=== PATIENT | male | born 1960 | race Caucasian/White ===

== ENCOUNTER 2016-06-20 14:55 | Emergency (ER) | payer OTHER ==
[2016-06-20 15:10] VITALS: BP 144/90
--- NOTE | 2016-06-20 15:10 | UC ---
General HPI - HPI Summary HPI Summary: "My leg isn't working right." Awoke this AM and has been unable to walk without assistance. He has a complete list to the right, falls right over. He has a bit of soreness in right calf. No known injury. No redness or swelling. No vertigo, not dizzy or light-headed. No recent illness. No new meds. No arm weakness or numbness, no facial droop, no confusion or slurring of words. This never happened to him before. confirms that he can not walk at all today without assistance. He demonstrates for me his walk. He seems to have imbalance and lists to the right despite his best effort to stay upright. - History of Current Complaint Stated Complaint: CANT WALK STRAIGHT,LEANS TO RIGHT,SWEATING Time Seen by Provider: 06/20/16 15:07 Hx Obtained From: Patient, Family/Film Processor - Onset/Duration: Sudden Onset - awoke with it this AM, persists throughout day Timing: Constant Onset Severity: Severe Current Severity: Severe Pain Location at: right calf Associated Signs & Symptoms: Positive: Diaphoresis - off and on, Weakness - right leg; no weakness elsewhere. Negative: Back Pain, Confusion, Cough, Dizziness, Diarrhea, Fever, Headache, Hematemesis, Nausea, Trauma, Vomiting, Wheezing - Allergy/Home Medications Allergies/Adverse Reactions: Allergies Allergy/AdvReac Type Severity Reaction Status Date / Time Amoxicillin Allergy Severe respiratory Verified 06/20/16 15:11 /hives Sulfa Drugs Allergy Intermediate Hives Verified 06/20/16 15:11 Codeine AdvReac Intermediate Heartburn Verified 06/20/16 15:11 Home Medications: Home Medications Atenolol & Chlorthalidone [Atenolol/Chlorthalidone 50-25 mg-] 0.5 tab PO DAILY 06/20/16 [History Confirmed 06/20/16] LoraTADine TAB(NF) [Claritin TAB(NF)] 10 mg PO DAILY 06/20/16 [History Confirmed 06/20/16] Magnesium Oxide TAB* [MagOx 400 TAB*] 400 mg PO BID 06/20/16 [History Confirmed 06/20/16] Venlafaxine ER (NF) [Effexor ER (NF)] 150 mg PO DAILY 06/20/16 [History Confirmed 06/20/16] glipiZIDE TAB.XL* [Glucotrol XL*] 2.5 mg PO DAILY 06/20/16 [History Confirmed ] hydrOXYzine HCL TAB* [Atarax TAB*] 25 mg PO BEDTIME PRN 06/20/16 [History Confirmed 06/20/16] metFORMIN* [Glucophage*] 1,000 mg PO BID 06/20/16 [History Confirmed 06/20/16] PMH/Surg Hx/FS Hx/Imm Hx Endocrine History Of: Reports: Diabetes Cardiovascular History Of: Reports: Cardiac Disorders - follows with [facility]. chest discomfort, Hypertension Respiratory History Of: Reports: Asthma - Surgical History Surgical History: Yes Surgery Procedure, Year, and Place: umbilical HERNIA X 1 - Family History Known Family History: Positive: Hypertension - Social History Occupation: Employed Full-time Lives: With Family Alcohol Use: Occasionally Substance Use Type: None Smoking Status (MU): Heavy Every Day Tobacco Smoker Type: Cigarettes Amount Used/How Often: 2 packs per day Household Exposure Type: Cigarettes - Immunization History Most Recent Tetanus Shot: pt does not know Review of Systems Constitutional: Negative Skin: Negative Eyes: Negative ENT: Negative Respiratory: Negative Cardiovascular: Negative Gastrointestinal: Negative Genitourinary: Negative Motor: Negative Neurovascular: Negative Musculoskeletal: Myalgia - mild, right calf Neurological: Weakness - right leg, entire leg; no numbness or tingling Psychological: Negative All Other Systems Reviewed And Are Negative: Yes Physical Exam Triage Information Reviewed: Yes Appearance: Well-Appearing, No Pain Distress, Well-Nourished Vital Signs Reviewed: Yes Eye Exam: Normal ENT Exam: Normal Neck exam: Normal Neck: Positive: Supple Respiratory Exam: Normal Respiratory: Positive: Lungs clear Cardiovascular Exam: Normal Cardiovascular: Positive: RRR Abdominal Exam: Normal Musculoskeletal Exam: Other - mild right calf tenderness. No redness or swelling. No palpable cords Neurological Exam: Other - he lists to the right when he stands up and walks. Can't balance on his left leg, still falls over to right. Neurological: Positive: Alert, Muscle Tone Normal. Negative: Fatigued, Lethargic, Unresponsive, Abnormal Muscle Tone Psychological Exam: Normal Skin Exam: Normal Diagnostics - Laboratory Diagnostic Studies Completed/Ordered: EKG- NSR, no ischemia, unchanged from prior Course/Dx - Course Course Of Treatment: concern re: CVA. His balance difficulty does not seem consistent with a sore muscle, nor with vertigo. Transferred to [place] [facility]. He refused to go to [place] or [place] because of distance - Differential Dx - Multi-Symptom Provider Diagnoses: gait disturbance - Physician Notifications Discussed Patient Care With: Yumiko Bowling NP at [facility] Instructed by Provider To: Will See In ED Discharge - Discharge Plan Condition: Stable Disposition: TRANS HIGHER LVL OF CARE FAC
== END 2016-06-20 15:20 | disposition short-term general hospital (02) ==
LOC: UCCORT 14:55
DX: R26.9 Unspecified abnormalities of gait and mobility (principal); I49.3 Ventricular premature depolarization; I25.2 Old myocardial infarction; Z88.1 Allergy status to other antibiotic agents; Z88.5 Allergy status to narcotic agent; Z88.2 Allergy status to sulfonamides; E11.9 Type 2 diabetes mellitus without complications; Z79.84 Long term (current) use of oral hypoglycemic drugs; J45.909 Unspecified asthma, uncomplicated; F17.210 Nicotine dependence, cigarettes, uncomplicated
CPT/HCPCS: 93005; 99213; G0463

== ENCOUNTER 2016-06-20 19:21 | Inpatient (IN) | payer OTHER ==
--- NOTE | 2016-06-20 20:06 | ED ---
Diony Gallagher Claudia, scribed for Bernardo Martinez MD on 06/20/16 at 1946 . Neurological HPI - HPI Summary HPI Summary: 55 year old male presents to the ED with trouble ambulating since he woke up this morning. Pt was just at [facility] and received a work-up of blood work, CT-unremarkable per pt, and CXR- he signed out AMA for [place] before coming to [facility] since he did not want to be transferred to [place] for a Brain MRI per [facility] recommendations. He notes that when he tries to stand/ambulate he is unable and deviated to the right and falls over. Pt notes he was driving earlier today and even drove to [facility]. He also noted he was having pain in the back of his calf about 1.5 hours ago while at [place]. Pt notes he is asymptomatic while sitting, it is only when he begins to stand that he begins to experience symptoms. Pt denied fever and is no longer having the calf pain. - History of Current Complaint Chief Complaint: EDNeurologicalDeficit Stated Complaint: HEADACHE,DIFFICULTY AMBULATING Time Seen by Provider: 06/20/16 19:30 Hx Obtained From: Patient Onset/Duration: Sudden Onset - this am, Still Present Timing: Constant Neurological Deficit Location: Generalized - unable to ambulate without deviating/falling over Pain Intensity: 6 Pain Scale Used: 0-10 Numeric Character: Other: - unable to ambulate without deviating to the right/ falling over Aggravating: Nothing - standing Alleviating: Position Change - sitting is asymptomatic Associated Signs and Symptoms: Negative: Loss of Consciousness - Allergy/Home Medications Allergies/Adverse Reactions: Allergies Allergy/AdvReac Type Severity Reaction Status Date / Time Amoxicillin Allergy Severe respiratory Verified 06/20/16 15:11 /hives Sulfa Drugs Allergy Intermediate Hives Verified 06/20/16 15:11 Codeine AdvReac Intermediate Heartburn Verified 06/20/16 15:11 PMH/Surg Hx/FS Hx/Imm Hx Previously Healthy: Yes Endocrine/Hematology History: Reports: Hx Diabetes Cardiovascular History: Reports: Hx Hypertension Respiratory History: Reports: Hx Asthma - Surgical History Surgery Procedure, Year, and Place: umbilical HERNIA X 1 Infectious Disease History: No Infectious Disease History: Denies: Traveled Outside the [place] in Last 30 Days - Family History Known Family History: Positive: Hypertension - Social History Occupation: Unemployed Lives: With Family Alcohol Use: Occasionally Substance Use Type: Reports: None Hx Tobacco Use: Yes Smoking Status (MU): Heavy Every Day Tobacco Smoker Type: Cigarettes Amount Used/How Often: 2 packs per day Review of Systems Constitutional: Negative Negative: Fever, Chills Eyes: Negative ENT: Negative Cardiovascular: Negative Respiratory: Negative Gastrointestinal: Negative Genitourinary: Negative Musculoskeletal: Negative Skin: Negative Neurological: Other - unable to ambulate without deviating to the right ot falling over Psychological: Normal All Other Systems Reviewed And Are Negative: Yes Physical Exam Triage Information Reviewed: Yes Vital Signs On Initial Exam: Initial Vitals Temp Pulse Resp BP Pulse Ox 97.7 F 97 16 129/91 99 06/20/16 19:24 06/20/16 19:24 06/20/16 19:24 06/20/16 19:24 06/20/16 19:24 Vital Signs Reviewed: Yes Appearance: Positive: Well-Appearing, No Pain Distress Skin: Positive: Warm Head/Face: Positive: Normal Head/Face Inspection Eyes: Positive: EOMI, NIKKI ENT: Positive: Hearing grossly normal Neck: Positive: Supple Respiratory/Lung Sounds: Positive: Clear to Auscultation, Breath Sounds Present Cardiovascular: Positive: Normal. Negative: Murmur Abdomen Description: Positive: Nontender, Soft Bowel Sounds: Positive: Present Musculoskeletal: Positive: Strength/ROM Intact Neurological: Positive: CN Intact II-III, Abnormal Gait - stumbling to right Psychiatric: Positive: Affect/Mood Appropriate Diagnostics - Vital Signs Vital Signs Temp Pulse Resp BP Pulse Ox 06/20/16 19:24 97.7 F 97 16 129/91 99 - Laboratory Result Diagrams: 06/20/16 20:00 06/20/16 20:00 Lab Statement: Any lab studies that have been ordered have been reviewed, and results considered in the medical decision making process. - Radiology CHEST XRAY Xray Interpretation: No Acute Changes - STIGMATA OF COPD. MILD CENTRAL AIRWAY WALL THICKENING SUGGEST AIRWAY INFLMAATION. NO ALVEOLAR CONSOLIDATION TO FAVOR PNEUMONIA. Radiology Interpretation Completed By: Radiologist - CT BRAIN CT CT Interpretation: No Acute Changes - NEGATIVE UNENHANCED HEAD CT CT Interpretation Completed By: Radiologist - EKG 19:29 Cardiac Rate: NL EKG Rhythm: Sinus Rhythm - 83 beats/min EKG Interpretation: poor R retention left axis NIH Scale - NIH Scale Level of Consciousness: Alert/Keenly Responsive Ask Patient the Month and His/Her Age: Both Correct Ask Pt to Open/Close Eyes and Wing Scorer/Release Non-Paretic Hand: Both Correctly Best Gaze (Only Horizontal Eye Movement): Normal Visual Field Testing: No Visual Loss Facial Paresis-Pt to Smile & Close Eyes or Grimace Symmetry: Normal/Symmetrical Motor Function - Right Arm: No Drift-Holds 10 Seconds Motor Function - Left Arm: No Drift-Holds 10 Seconds Motor Function - Right Leg: No Drift-Holds 10 Seconds Motor Function - Left Leg: No Drift-Holds 10 Seconds Limb Ataxia-Must be out of Proportion to Weakness Present: Absent Sensory (Use Pinprick to Test Arms/Legs/Trunk/Face): Normal Best Language (Describe Picture, Name Items): No Aphasia Dysarthria (Read Several Words): Normal Extinction and Inattention: No Abnormality Total Score: 0 Re-Evaluation - Re-Evaluation 1 Re-Evaluation Time: 21:25 Comment: CT Brain, CXR are discussed with the patient Course/Dx - Course Assessment/Plan: Pt presents with difficulty ambulating without deviating to the right and or falling over, sudden onset this morning. CT Brain was unremarkable. Consult [facility] Dr. Calderón recommends aspirin and admission to [facility]. Patient is agreeable with the plan. - Diagnoses Provider Diagnoses: CVA (cerebral vascular accident) - Physician Notifications Discussed Care of Patient With: Disussed patient with Dr. Culver whom recommends aspirin and admission to [facility]. Dr. Boswell is aware of the patient and accepts admission to [facility]. Time Discussed With Above Provider: 21:42 Discharge - Discharge Plan Condition: Fair Disposition: ADMITTED TO [facility] documentation as recorded by the Diony ferraro Claudia accurately reflects the service I personally performed and the decisions made by me, Bernardo Martinez MD.
[2016-06-20 20:20] LABS: Hematocrit 47 % (42-52); Hemoglobin 15.8 g/dl (14.0-18.0); Mean Corpuscular HGB Conc 33 g/dl (31-36); Mean Corpuscular Hemoglobin 29 pg (27-31); Mean Corpuscular Volume 87 fL (80-94); Mean Platelet Volume 9 um3 (7.4-10.4); Red Blood Count 5.42 10^6/ul (4.0-5.4); Red Cell Distribution Width 14 % (10.5-15)
[2016-06-20 20:39] LABS: Albumin 4.3 g/dL (3.2-5.2); BUN/Creatinine Ratio 13.8 (8-20); Calcium 9.6 mg/dL (8.6-10.3); EGFR African American 79.2 (>60); EGFR Non-African American 61.6 (>60); Globulin 2.6 g/dL (2-4); Magnesium 1.6 mg/dL (1.9-2.7); Potassium 4.1 mmol/L (3.5-5.0); Total Bilirubin 0.3 mg/dL (0.2-1.0); Total Protein 6.9 g/dL (6.4-8.9)
--- NOTE | 2016-06-20 20:59 | RAD ---
INDICATION: Generalized body weakness. Tobacco use. COMPARISON: June 14, 2014 TECHNIQUE: Dual energy PA and routine lateral views of the chest were obtained. REPORT: Mildly elevated lung volumes with prominent AP thoracic diameter. Diffuse mild prominence of the interstitial markings. Mild central airway wall thickening. No alveolar consolidation, focal pulmonary lesion, pleural effusion, or pneumothorax. The heart, pulmonary vasculature, and mediastinal contours are unremarkable. IMPRESSION: Stigmata of chronic obstructive pulmonary disease. Mild central airway wall thickening suggest airways inflammation. No alveolar consolidation to favor pneumonia.
--- NOTE | 2016-06-20 21:02 | RAD ---
Indication: Off-balance, leaning when ambulating. Headache. Slight LEFT arm drift and LEFT landscape manager weakness. Headache. Comparison: None. Technique: Noncontrast CT vertex of skull through foramen magnum. Report: The sulci, ventricles, and basal cisterns are normal for age. Johnson matter white matter differentiation is preserved without evidence for edema. No intra or extra axial hemorrhage, mass, or fluid collection detected. Unremarkable orbital contents. Unremarkable calvarium and skull base. Unremarkable scalp. The visualized paranasal sinuses and mastoid air spaces are clear. IMPRESSION: Negative unenhanced head CT.
[2016-06-20] MEDS ORDERED: Aspirin TAB* 325 MG PO ONE (21:40)
[2016-06-20] MEDS ORDERED: Ondansetron INJ* 2 MG/ML VIAL IV PRN (22:44)
[2016-06-20] MEDS ORDERED: Senna TAB PO PRN (22:44)
[2016-06-20] MEDS ORDERED: Acetaminophen TAB* 325 MG PO PRN (22:44)
[2016-06-20] MEDS ORDERED: Al Hydrox/Mg Hydrox/Simet LIQ* 30 ML UDC PO PRN (22:44)
[2016-06-20] MEDS ORDERED: Docusate CAP* 100 MG PO PRN (22:44)
[2016-06-20] MEDS ORDERED: Magnesium Sulfate 2 GM IV* 2 GM/50 ML BAG IVPB ONE (22:45)
[2016-06-20] MEDS ORDERED: Atorvastatin* 40 MG TAB PO ONE (22:50)
[2016-06-20] MEDS ORDERED: Nicotine Inhaler* 10 MG AMP INH PRN (22:50)
[2016-06-20] MEDS ORDERED: Dextrose 50% Syringe 50 ML* 25 GM/50 ML SYRINGE IV PUSH PRN (22:50)
[2016-06-20] MEDS ORDERED: Mouth Piece, Nicotine* 1 EACH CARTRIDGE INH PRN (22:50)
[2016-06-20] MEDS ORDERED: hydrOXYzine HCL TAB* 25 MG PO PRN (22:50)
[2016-06-20] MEDS ORDERED: Albuterol HFA INHALER* 8 gm MDI INH PRN (22:54)
[2016-06-21] MEDS: Omeprazole CAP* 20 MG PO SCH ×2 (00:18→10:09)
[2016-06-21] MEDS: Heparin VIAL(*) 5000 UNITS/ML VIAL (FIVE THOUSAND) SUBCUT SCH ×2 (05:43→13:30)
[2016-06-21 06:34] LABS: BUN/Creatinine Ratio 13.5 (8-20); Calcium 9.3 mg/dL (8.6-10.3); EGFR African American 72.3 (>60); EGFR Non-African American 56.2 (>60); HDL Cholesterol 32.9 mg/dL; Magnesium 2.1 mg/dL (1.9-2.7)
[2016-06-21] MEDS ORDERED: Aspirin TAB* 325 MG PO SCH (09:00)
[2016-06-21] MEDS ORDERED: Venlafaxine EXT RELEASE CAP* 75 MG PO SCH (09:00)
[2016-06-21 09:02] LABS: Urine Bilirubin Negative (Negative); Urine Glucose Negative (Negative); Urine Nitrite Negative (Negative)
--- NOTE | 2016-06-21 09:20 | HP ---
HISTORY AND PHYSICAL: DATE OF ADMISSION: 06/20/16 TIME OF EVALUATION: 2200. PRIMARY CARE PHYSICIAN: Dwayne Feliz MD. CHIEF COMPLAINT: Difficulty ambulating. HISTORY OF PRESENT ILLNESS: This is a 55-year-old male with a past medical history of hypertension, diabetes, hyperlipidemia and a heavy smoker, who presented to the emergency room with difficulty ambulating. The patient states he woke up this morning and he kept falling over, leaning towards the right with difficulty ambulating. He went to [facility] where they sent him to [facility] where they recommended he go to [facility] for a neurology evaluation. The patient did not want to travel that far and left A. He started to get nervous and came to emergency room here at [facility] for further evaluation. He states he has fallen several times with no loss of consciousness. No injury to his head. He does have left elbow tendinitis, but this is not new. He denies any focal weakness. No numbness or tingling. He has a mild diffuse headache. No blurry vision. No confusion. No difficulties with speech. He denies any chest pain or shortness of breath. No new recent URIs, fevers or chills. No nausea, vomiting or diarrhea. Otherwise, review of systems is negative. In the emergency room, the patient had labs, imaging, was given 325 mg of aspirin and was referred to the hospitalist service for further evaluation. Dr. Calderón was consulted in the emergency room and he recommended admission for stroke workup. PAST MEDICAL HISTORY: 1. Hypertension. 2. Diabetes. 3. Depression. 4. Hyperlipidemia. 5. GERD. MEDICATIONS: 1. Lisinopril 40 mg p.o. daily. 2. Aspirin 81 mg daily. 3. Simvastatin 40 mg daily. 4. Omeprazole 40 mg p.o. b.i.d. 5. Atenolol and chlorthalidone 50-25 half tablet p.o. daily 6. Claritin 10 mg daily. 7. Magnesium oxide 400 mg p.o. b.i.d. 8. Effexor ER 150 mg p.o. daily. 9. Glipizide 2.5 mg p.o. daily. 10. Atarax 25 mg as needed for anxiety. 11. Metformin 1000 mg p.o. b.i.d. ALLERGIES: AMOXICILLIN, SULFA, CODEINE. SOCIAL HISTORY: The patient lives at home with his , Marlene, who is his healthcare proxy. He admits to smoking 2 packs per day for up to 30 years. He used to be a heavy drinker, but has not had a significant amount of alcohol in many years. No illicit drug use. He is unemployed. CODE STATUS: Full code. REVIEW OF SYSTEMS: As mentioned in the HPI. FAMILY HISTORY: No history of stroke. His mother does have hypertension and diabetes. PHYSICAL EXAMINATION GENERAL: In no acute distress, resting comfortably with his at the bedside. VITAL SIGNS: Temp is 97.7, pulse rate is 97, respiratory rate is 16, oxygen saturation 97% on room air, blood pressure 121/91. HEENT: Pupils are equal and reactive, anicteric. Head normocephalic. Eyes, extraocular muscles intact. NECK: Supple. No lymphadenopathy. No nuchal rigidity. RESPIRATORY: Diminished breath sounds. Fine scattered bilateral expiratory wheeze. CARDIAC: Regular rate and rhythm. Soft systolic murmur heard throughout. ABDOMEN: Soft, nontender, and nondistended. EXTREMITIES: No clubbing, cyanosis, or edema. +1 DPs. NEUROLOGIC: Alert and oriented x3. Cranial nerves II through XII intact. Negative pronator drift. Upper and lower muscle strength normal. Heel to ramírez test normal. Do not ambulate him as the ER did ambulate him and they noted that he had difficulty standing and ambulating and leaning towards the right. LABORATORY DATA: White count 13, hemoglobin 15.8, hematocrit 47, platelet count 296. Sodium 131, potassium 4.1, chloride 105, bicarb 26, BUN 17, creatinine 1.23, glucose 157, lactic acid 1.3. Magnesium 1.6. RADIOGRAPHIC DATA: EKG shows normal sinus rhythm. Chest x-ray: Stigmata of COPD, mild central aortic wall thickening suggests inflammation. No alveolar consolidation to favor pneumonia. Head CT negative, unenhanced head CT. ASSESSMENT AND PLAN: This is a 55-year-old male with a past medical history of hypertension, diabetes, hyperlipidemia and heavy smoking who presents to the emergency room after leaving AMA from [facility] with ataxia. 1. Ataxia. Assessment: The patient with difficulty ambulating, leaning to the right is most concerning for a cerebellar infarct. Head CT was unremarkable. However, he has significant risk factors for stroke. Neurology was consulted in the emergency room. Plan is to admit him to telemetry. We will start him on a full dose aspirin. The patient is to get an MRI in the morning. PT consult, follow up with Neurology. We will get a lipid panel and check a hemoglobin A1c. We will continue him on the statin. We will change him to atorvastatin as we have this on formulary to 40 mg, give him a dose now and also obtain an echocardiogram. 2. Acute kidney injury. The patient with a slight bump in his creatinine, this is compared to 2010. Assessment and plan: We will hold his lisinopril, repeat his labs and renally dose his medications. CHRONIC MEDICAL PROBLEMS: 1. Hypertension. In the setting of a stroke, we will allow for permissive hypertension and hold his antihypertensives. 2. Diabetes. We will place him on lispro sliding scale, hold his oral agents, check a hemoglobin A1c. 3. Hyperlipidemia. As mentioned, we will switch him from simvastatin to atorvastatin as we have this on formulary. 4. Gastroesophageal reflux disease. We will continue his omeprazole 20 mg p.o. b.i.d. 5. Depression. Continue his Effexor ER and his Atarax as needed. 6. FEN. We will place him on a diabetic diet. 7. DVT prophylaxis. He scores moderate risk. We will place him on heparin subcu t.i.d. 8. Code status. Full code. PATIENT TIME: Greater than 45 minutes spent doing the history and physical, more than half the time was spent in direct patient contact. CC: [place] [id number]/CPS #: [id number] MASOUD
[2016-06-21 09:28] LABS: Benzodiazepine Urine Screen None Detected (None Detect)
[2016-06-21] MEDS: Insulin LISPRO* 1 UNITS UNIT SUBCUT SCH ×3 (10:10→17:45)
--- NOTE | 2016-06-21 11:31 | RAD ---
HISTORY: Rule out stroke, gait and balance COMPARISONS: Head CT dated June 20, 2016 TECHNIQUE: The following sequences were obtained of the head: Sagittal T1-weighted images, axial T2-weighted images, axial FLAIR images, axial susceptibility weighted images, axial T1-weighted images. Additionally, axial diffusion-weighted images were obtained with calculated apparent diffusion coefficients. FINDINGS: HEMORRHAGE/INFARCT: There is no hemorrhage or acute infarct. MASSES/SHIFT: There is no mass or shift. EXTRA-AXIAL SPACES/MENINGES: There are no extra-axial fluid collections. SULCI AND VENTRICLES: The sulci and ventricles are normal in size and position for the patient's stated age. CEREBRUM: There are few, scattered small foci of elevated T2/FLAIR signal within the periventricular and subcortical white matter. BRAINSTEM: There are no focal parenchymal abnormalities. CEREBELLUM: There are no focal parenchymal abnormalities. The cerebellar tonsils are normal in size and position. SELLA: The sella is normal. PINEAL: The pineal region is clear. CP ANGLE/TEMPORAL BONES: The labyrinthine structures are grossly normal. VESSELS: Normal flow-voids are noted within the visualized vertebral vasculature. DIFFUSION ABNORMALITIES: There are no diffusion abnormalities. A small focus of increased diffusion signal on axial image 7 has no corresponding abnormality on the ADC map and is felt to be artifactual. There is no corresponding T2/FLAIR signal abnormality PARANASAL SINUSES/MASTOIDS: The paranasal sinuses are clear. There are small bilateral mastoid effusions ORBITS: The orbits are unremarkable. BONES AND SOFT TISSUE: No bone or soft tissue abnormalities are noted. OTHER: None IMPRESSION: 1. THERE ARE MULTIPLE FOCI OF ELEVATED T2/FLAIR SIGNAL WITHIN THE PERIVENTRICULAR AND SUBCORTICAL WHITE MATTER. WHILE THESE FINDINGS ARE NONSPECIFIC, THEY CAN BE SEEN IN ASSOCIATION WITH MIGRAINE HEADACHE, THE SEQUELA OF PREVIOUS INFECTION OR INFLAMMATION, AND CHRONIC SMALL VESSEL ISCHEMIA. DEMYELINATING DISEASE IS ALSO WITHIN THE DIFFERENTIAL, BUT IS CONSIDERED LESS LIKELY IN THE ABSENCE OF THE APPROPRIATE CLINICAL PRESENTATION. 2. NO RESTRICTED DIFFUSION TO SUGGEST ACUTE INFARCT. 3. SMALL BILATERAL MASTOID EFFUSIONS
--- NOTE | 2016-06-21 15:01 | ECHO ---
Patient: SPENCER MADISON [facility] Rec#: [id number] : 1960 Date: 06/21/2016 Age: 55y Height: 180.34 cm / 71.0 in Weight: 129.27 kg / 284.9 lbs Sex: M BSA: 2.45 Room#: 438 Admit Date#: 06/21/2016 Type: Inpatient Referring: Myrna Boswell Reading: Jayjay Avila MD [employer] Manager: Mariela Odom RDCS CC: Dwayne Feliz MD Transthoracic Echocardiogram Indication: CVA BP: 123/64 HR: 66 Rhythm: NSR Findings History: COPD,difficulty walkinf,DM,HTN,asthma,active smoker. Technical Comments: The study is technically limited due to patient body habitus. Completed at 1410. Left Ventricle: The left ventricular chamber size is normal. Global left ventricular wall motion and contractility are within normal limits. Left ventricular systolic function is at the lower limits of normal. The estimated ejection fraction is 50-55%. Visually estimated LVEF is 50 %. Abnormal left ventricular diastolic filling is observed, consistent with impaired relaxation. Left Atrium: The left atrium is slightly dilated. Right Ventricle: The right ventricular cavity size is normal. The right ventricular global systolic function is normal. Right Atrium: The right atrial cavity size is normal.With agitated saline there is no evidence of right to left shunting. Aortic Valve: The aortic valve structure is not well visualized. There is no evidence of aortic regurgitation. There is no evidence of aortic stenosis. Mitral Valve: The mitral valve leaflets are mildly thickened. There is a trace of mitral regurgitation. There is no evidence of mitral stenosis. Tricuspid Valve: The tricuspid valve leaflets are normal. There is a physiologic tricuspid regurgitation. There is evidence that pulmonary hypertension may be underestimated. Pulmonic Valve: The pulmonic valve appears normal. There is no evidence of pulmonic regurgitation. There is no pulmonic stenosis. Pericardium: A pericardial fat pad is visualized. Aorta: There is no dilatation of the ascending aorta. There is no dilatation of the aortic arch. There is no dilation of the aortic root. Pulmonary Artery: The main pulmonary artery appears normal. Venous: The venous system is not well visualized. Contrast: Normal saline was used as contrast for the bubble study. Intravenous contrast was used to help determine presence of intracardiac shunting. Conclusions The study is technically limited due to patient body habitus and significant lung tissue interference. The left ventricular chamber size is normal. Left ventricular systolic function is at the lower limits of normal. The estimated ejection fraction is 50-55%. Visually estimated LVEF is 50 %. Abnormal left ventricular diastolic filling is observed, consistent with impaired relaxation. With agitated saline there is no evidence of right to left shunting. No significant valvular disease: There is a trace of mitral regurgitation. No significant change compared to report of study from07/23/2010 Measurements Name Value Normal Range RVIDd (AP) 2D 2.9 cm (0.9 - 2.6) RVDdMajor (2D) 2.5 cm (2.2 - 4.4) RAd ISD 4CH 4.3 cm (3.4 - 4.9) RA (A4C)W 4.2 cm (2.9 - 4.6) IVSd (2D) 0.8 cm (0.6 - 1) LVPWd (2D) 1.3 cm (0.6 - 1) LVIDd (2D) 5.3 cm (3.6 - 5.4) LVIDs (2D) 3.7 cm - LV FS (2D) 29 % (25 - 45) Aortic Annulus 2.3 cm (1.4 - 2.6) Ao root diameter (2D) 3.3 cm (2.1 - 3.5) Ascending Ao 3.4 cm (2.1 - 3.4) Aortic arch 2.5 cm (1.8 - 3.4) Descending Ao 0.7 cm - LA dimension (AP) 2D 4 cm (2.3 - 3.8) LAd ISD 4CH 5.7 cm (2.9 - 5.3) LA ISD 4CH W 3.1 cm (2.5 - 4.5) Name Value Normal Range LA ESV SP 4CH (A/L) 50 ml - LA ESV SP 2CH (A/L) 44 ml - LA ESV BP (A/L) 48 ml - LA ESV BP (A/L) index 19.48 ml/m2 - LA ESV SP 4CH (MOD) 46 ml - LA ESV SP 2CH (MOD) 43 ml - Name Value Normal Range MV E-wave Vmax 0.6 m/sec - MV deceleration time 174 msec - MV A-wave Vmax 0.8 m/sec - MV E:A ratio 0.76 ratio - LV septal e' Vmax 0.08 m/sec - LV lateral e' Vmax 0.09 m/sec - LV E:e' septal ratio 7.5 ratio - LV E:e' lateral ratio 6.67 ratio - Name Value Normal Range AV Vmax 1.5 m/sec - AV VTI 26.1 cm - AV peak gradient 8.86 mmHg - AV mean gradient 4.45 mmHg - LVOT Vmax 1.1 m/sec - LVOT VTI 21.2 cm - LVOT peak gradient 4.93 mmHg - LVOT mean gradient 2.47 mmHg - Name Value Normal Range PV Vmax 1.1 m/sec - PV peak gradient 4.61 mmHg -
[2016-06-21] MEDS ORDERED: Iodixanol* (CONTRAST) 320 MG/ML 100 ML SDV IV ONE (16:45)
--- NOTE | 2016-06-21 17:08 | PN ---
Subjective Date of Service: 06/21/16 Interval History: Patient seen and examined at bedside. Pt states that his gait is improving, but he still goes to the right when he ambulates. Denies fever, chills, shortness of breath, chest discomfort, lightheadedness or dizziness, N/V/D. Denies urinary problems. Tele: Sinus rhythm, rate 70-80's. Family History: Unchanged from Admission Social History: Unchanged from Admission Past Medical History: Unchanged from Admission Objective Active Medications: Acetaminophen (Tylenol Tab*) 650 mg PO Q4H PRN Reason: FEVER/PAIN Al Hydrox/Mg Hydrox/Simethicone (Maalox Plus*) 30 ml PO Q6H PRN Reason: INDIGESTION Albuterol (Ventolin Hfa Inhaler*) 2 puff INH Q2H PRN Reason: SOB/WHEEZING Aspirin (Aspirin Tab*) 325 mg PO DAILY ISABEL Atorvastatin Calcium (Lipitor*) 40 mg PO 2100 [facility] Device (Nicotine Mouth Piece*) 1 each INH .USE WITH NICOTROL PRN Reason: CRAVING Dextrose (D50w Syringe 50 Ml*) 12.5 gm IV PUSH .FOR FS < 60 - SS PRN Reason: FS < 60 Docusate Sodium (Colace Cap*) 100 mg PO BID PRN Reason: CONSTIPATION Heparin Sodium (Porcine) (Heparin Vial(*)) 5,000 units SUBCUT Q8HR [facility] Hydroxyzine HCl (Atarax Tab*) 25 mg PO Q6H PRN Reason: ANXIETY Insulin Human Lispro (Humalog*) 0 units SUBCUT AC [facility] Nicotine (Nicotine Inhaler*) 10 mg INH Q2H PRN Reason: CRAVING Omeprazole (Prilosec Cap*) 20 mg PO BID [facility] Ondansetron HCl (Zofran Inj*) 4 mg IV Q4H PRN Reason: NAUSEA/VOMITING Senna (Senokot Tab*) 1 tab PO BID PRN Reason: CONSTIPATION Venlafaxine HCl (Effexor Xr Cap*) 150 mg PO DAILY [facility] Vital Signs 06/21/16 06/21/16 06/21/16 01:32 01:45 08:00 Temperature 98.1 F Pulse Rate 81 Respiratory 20 20 18 Rate Blood Pressure 123/64 (mmHg) O2 Sat by Pulse 96 Oximetry 06/21/16 06/21/16 06/21/16 08:12 09:50 11:27 Temperature 98.4 F 99.1 F Pulse Rate 71 75 78 Respiratory 16 16 16 Rate Blood Pressure 111/79 135/92 (mmHg) O2 Sat by Pulse 99 98 Oximetry Oxygen Devices in Use Now: None Appearance: NAD, sitting up in bed. Eyes: No Scleral Icterus, PERRLA Ears/Nose/Mouth/Throat: NL Teeth, Lips, Gums, Mucous Membranes Moist Neck: NL Appearance and Movements; NL JVP, Trachea Midline Respiratory: Symmetrical Chest Expansion and Respiratory Effort, Clear to Auscultation Cardiovascular: NL Sounds; No Murmurs; No JVD, RRR Abdominal: NL Sounds; No Tenderness; No Distention Extremities: No Edema Skin: No Rash or Ulcers Neurological: Alert and Oriented x 3, NL Muscle Strength and Tone Lines/Tubes/Other Access: Clean, Dry and Intact Peripheral IV - site benign. Nutrition: Taking PO's Result Diagrams: 06/20/16 20:00 06/21/16 05:45 Assess/Plan/Problems-Billing Assessment: Mr. Denise is a 55 yo male with PMH significant for HTN, DM, HLD, and heavy smoking who presented to the emergency room for ataxia. - Patient Problems (1) Ataxia Code(s): R27.0 - ATAXIA, UNSPECIFIED SNOMED Code(s): 43816585 Comment: Improving. Head CT unremarkable. MRI . Neurology input appreciated. Will check CTA. Suspect possible right sided cerebellar infact vs TIA. Will start Plavix or continue ASA, but increase to 325 if Pt not willing to take Plavix. (2) HATTIE (acute kidney injury) Code(s): N17.9 - ACUTE KIDNEY FAILURE, UNSPECIFIED SNOMED Code(s): 58482049 Comment: Creatinine continues to be elevated. Will continue to hold lisinopril. Renally dose medications. (3) HTN (hypertension) Code(s): I10 - ESSENTIAL (PRIMARY) HYPERTENSION SNOMED Code(s): 18294399 Comment: Controlled. Continue to hold Lisinopril in setting of HATTIE. (4) Diabetes Code(s): E11.9 - TYPE 2 DIABETES MELLITUS WITHOUT COMPLICATIONS SNOMED Code(s) : 00717861 Comment: HgA1C 8.0. Glucose 160's. Continue lispro, and resume oral agents at discharge. (5) HLD (hyperlipidemia) Code(s): E78.5 - HYPERLIPIDEMIA, UNSPECIFIED SNOMED Code(s): 70339824 Comment: Continue statin (6) GERD (gastroesophageal reflux disease) Code(s): K21.9 - GASTRO-ESOPHAGEAL REFLUX DISEASE WITHOUT ESOPHAGITIS SNOMED Code(s): 594778019 Comment: Continue omeprazole (7) Depression Code(s): F32.9 - MAJOR DEPRESSIVE DISORDER, SINGLE EPISODE, UNSPECIFIED SNOMED Code(s): 20788848 Comment: Continue Effexor and atarax PRN. (8) DVT prophylaxis Code(s): POT7298 - SNOMED Code(s): 840870604 Comment: Continue SQ Heparin (9) Full code status Code(s): Z78.9 - OTHER SPECIFIED HEALTH STATUS SNOMED Code(s): 783071620 Status and Disposition: Inpatient. Discharge to home when medically stable. Possibly later today.
--- NOTE | 2016-06-21 17:29 | RAD ---
INDICATION: Possible CVA. COMPARISON: June 21, 2016 MRI. TECHNIQUE: Multidetector CT images were obtained from the aortic arch to the vertex of the head with 80 mL Visipaque 320 IV contrast. Arterial phase of enhancement. Multiplanar reformation including maximum intensity projection. 3-D arterial volume rendering. Stenosis estimations based on denominator of distal arterial diameter. NECK ANGIOGRAM REPORT: Noncalcified plaque at the ostia of the branch vessels at the aortic arch without suggestion of hemodynamic significant stenosis. Mild calcific and noncalcific plaque at the RIGHT carotid bulb and proximal internal carotid artery with approximate 30% short segment stenosis resulting at the proximal segment. Mild calcific and noncalcific plaque at the LEFT carotid bifurcation and proximal internal carotid artery with approximate 30% short segment stenosis at the proximal segment. LEFT dominant vertebral artery is patent. Diminutive RIGHT vertebral artery appears to largely terminate in the posterior inferior cerebellar artery with equivocal minimal contribution to the basilar artery. NECK ANGIOGRAM IMPRESSION: Atherosclerotic disease with approximate 30% bilateral internal carotid artery stenosis. HEAD ANGIOGRAM REPORT: Mild calcific plaque at the carotid siphons. Minimal calcific plaque at the supraclinoid segment of the LEFT internal carotid artery without significant stenosis resulting. Unremarkable M1 and M2 segments of the middle cerebral arteries as well as the A1 and A2 segments of the anterior cerebral arteries. No definitive anterior communicating artery visualized. Unremarkable cerebellar artery origins. The basilar artery is diminutive in size and terminates in the patent LEFT posterior cerebral artery with probable additional small contribution from a hypoplastic LEFT posterior communicating artery. The RIGHT posterior cervical arteries patent and supplied primarily by a dominant RIGHT posterior communicating artery with normal variant hypoplastic P1 segment. No intracranial aneurysm or vascular malformation evident. HEAD ANGIOGRAM IMPRESSION: No significant intracranial arterial stenosis or occlusion. Normal arterial anatomy variation as described. CPT II: CPT II Codes: 3100F
[2016-06-21 18:24] VITALS: BP 113/76
[2016-06-21] MEDS ORDERED: Atorvastatin* 40 MG TAB PO SCH (21:00)
--- NOTE | 2016-06-21 22:17 | CONS ---
CONSULTATION REPORT: DATE OF CONSULT: 06/21/16 PATIENT OF: Nelida Rayo NP. HISTORY OF PRESENT ILLNESS: This is a 55-year-old man I am asked to evaluate for an acute onset of gait disturbance. He woke up yesterday morning with imbalance and leaning to the right and he fell a couple of times. He was initially seen at urgent care and then to [facility] and he left AMA and came to [facility] later that day. He has fallen. He has had no numbness or tingling and no clear weakness with that, but he had a feeling of imbalance and when his eyes were closed, he could not stand. He had just a mild headache, no blurred vision, no confusion. No nausea, no difficulty with speech. No chest pain. He has a history of hypertension, diabetes, hyperlipidemia, depression, GERD, and he smokes significantly 2 packs a day for 30 years and he was a former heavy drinker but not now. He is unemployed. MEDICATIONS AT HOME: Include: 1. Lisinopril 40 mg daily. 2. Aspirin 81 mg daily. 3. Simvastatin 40 mg daily. 4. Omeprazole 40 mg twice a day. 5. Atenolol and chlorthalidone 50/25 half tablet daily. 6. Claritin 10 mg daily. 7. Mag oxide 400 b.i.d. 8. Effexor 150 daily. 9. Glipizide 2.5 daily. 10. Atarax 25 mg p.r.n. 11. Metformin 1000 mg daily. ALLERGIES: To AMOXICILLIN, SULFA and CODEINE. FAMILY HISTORY: There is no family history for stroke. Mother has hypertension , diabetes. SOCIAL HISTORY: Lives with his . REVIEW OF SYSTEMS: As above. PHYSICAL EXAM: On exam, temperature 99.1, pulse 78, respirations 16, blood pressure 135/92. He is alert and oriented with normal speech and comprehension. Cranial nerves II through XII were intact. Fundi were benign. Motor exam revealed normal tone and strength including in that right leg, is minimally unsteady standing, walking he tends to veer to the right slightly but did not appear to fall and he was out wandering the singh later without apparent difficulty. Sensation intact to light touch. Reflexes were 2 and equal with trace to 1 ankle jerks. Toes were downgoing. Chest: Clear. Cardiovascular: Regular rate and rhythm. Abdomen: Soft with positive bowel sounds. DIAGNOSTIC STUDIES/LAB DATA: His MRI scan was reviewed and showed no acute stroke but did show a few nonspecific white matter lesions. He had a cardiac echo that showed a negative bubble study and no source of clot. Labs include white count of 13, normal CBC otherwise. CMP had a creatinine of 1.23 initially, sodium of 131. Hemoglobin A1c of 8.0, calcium 1.6, LDL of 96. UA negative. Toxicology negative. ASSESSMENT AND PLAN: I discussed with Brandon and his that the causes of his gait disturbance yesterday could have either been an acute diabetic neuropathy such as lumbar plexopathy or femoral neuropathy but there is no sign of weakness today and I do not think that this is what happened yesterday because there is no weakness today and he is still having some minor symptoms and because he had a feeling of imbalance I think that this is more likely a small right cerebellar TIA or possibly stroke and I would switch him to Plavix, put him on medication for his LDL and check a CTA. I also strongly recommended that he give up smoking. I discussed that and the risk of stroke with him in detail. I discussed my concerns with his hospitalist as well. Thank you for sharing his case. [id number]/[facility] #: [id number] MASOUD
--- NOTE | 2016-06-22 17:44 | DS ---
DISCHARGE SUMMARY: DATE OF ADMISSION: 06/20/16 DATE OF DISCHARGE: 06/21/16 ATTENDING PHYSICIAN: Dr. Crista Garcia (dictated by Nelida Hummel NP). PRIMARY CARE PROVIDER: Dr. Dwayne Feliz. PRIMARY DIAGNOSES: 1. Transient ischemic attack. 2. Acute kidney injury. 3. Tobacco abuse. SECONDARY DIAGNOSES: 1. Hypertension. 2. Hyperlipidemia. 3. Diabetes mellitus. CONSULTATIONS WHILE IN THE HOSPITAL: Dr. Bernardo Calderón with Neurology. STUDIES WHILE IN THE HOSPITAL: 1. Chest x-ray on 06/20/16. Radiologist's impression: Stigmata of chronic obstructive pulmonary disease. Mild central airway wall thickening suggests airway inflammation. No alveolar consolidation to favor pneumonia. 2. Brain CT on 06/20/16. Radiologist's impression: Negative unenhanced CT. 3. Brain MRI on 06/21/16. Radiologist's impression: There are multiple foci of elevated T2/FLAIR signal within the periventricular and subcortical white matter. While these findings are nonspecific, they can be seen in association with migraine headaches, as the sequelae of previous infection or inflammation, and small chronic vessel ischemia. Demyelinating disease is also within the differential but is considered less likely in the absence of the appropriate clinical presentation. No restricted diffusion to suggest acute infarct. Small bilateral mastoid effusions. 4. Transthoracic echocardiogram on 06/21/16. Plastics Seasoner Operator's conclusion: The study is technically limited to the patient's body habitus and significant lung tissue interference. The left ventricular chamber size is normal. The left ventricular systolic function is at the lower limits of normal. The estimated ejection fraction is 50% to 55%. Visually estimated LVEF is 50%. Abnormal left ventricular diastolic filling is observed, consistent with impaired relaxation. With agitated saline, there is no evidence of right to left shunting. No significant valvular disease. There is a trace of mitral regurgitation. No significant change compared to the report of study from 07/23. 5. Head CT on 06/21/16. Radiologist's impression: The neck angiogram: Atherosclerotic disease with approximate 30% bilateral internal artery stenosis. Head angiogram: No significant intracranial arterial stenosis or occlusion. Normal arterial anatomy variation as described. DISCHARGE MEDICATIONS: New home medications: 1. Plavix 75 mg oral daily. 2. Protonix 40 mg oral daily. Continued home medications: 1. Simvastatin 40 mg oral daily. 2. Glipizide 2.5 mg oral daily. 3. Loratadine 10 mg oral daily. 4. Hydroxyzine 25 mg daily at bedtime as needed for anxiety. 5. Effexor ER 150 mg oral daily. 6. Magnesium oxide 800 mg oral twice daily. 7. Metformin 1000 mg oral twice daily. 8. Atenolol/chlorthalidone 50/25 mg half a tablet oral daily. Discontinued home medications: 1. Omeprazole. 2. Lisinopril. 3. Aspirin. HISTORY OF PRESENT ILLNESS/HOSPITAL COURSE: Mr. Denise is a 55-year-old male with past medical history significant for hypertension, diabetes mellitus, Hyperlipidemia, and a heavy smoker, who presented to the emergency room with complaints of difficulty ambulating. The patient states that he woke up and while trying to walk, he kept falling over, leaning towards his right. The patient presented to [facility] where he was sent to the [facility]. The [facility] recommended the patient go to [facility] for neurology evaluation. The patient did not want to travel that far and left against medical advice. The patient continued to have difficulty ambulating and was concerned for his health, so he presented to the [facility] Emergency Room for further evaluation. It is to note that the patient denied any loss of consciousness or head injury with his falls. He denied any facial weakness, numbness, tingling, visual changes, confusion, difficulty with speech, shortness of breath, chest pain. The patient does note he did note mild diffuse headache. While in the [facility] Emergency Room, the patient had labs, received 325 mg of aspirin, had an EKG showing a sinus rhythm, a chest x-ray showing stigmata of COPD, a head CT that was negative. At that point, the hospitalists were asked to evaluate the patient for admission for possible cerebrovascular accident. While in the hospital, the patient was seen in consultation by Dr. Calderón. He also had an MRI showing no signs of an acute infarct. The patient had a CTA of his head and neck showing no significant carotid artery stenosis. He also underwent an echocardiogram with agitated saline, there is no evidence of right to left shunting. During the patient's time in the hospital, his gait improved. The patient was not seen by Physical Therapy due to being missed while he was at a test. The patient's labs remained unremarkable with the exception of slightly elevated creatinine. The patient's creatinine actually increased overnight from 1.23 on admission to 1.33. During the patient's stay, his lisinopril was held to allow permissive hypertension and the patient's blood pressures were controlled. The patient was very anxious to leave and did not want to stay overnight to receive additional IV hydration to see if this would help improve his renal function. It was discussed with the patient about starting on Plavix. The patient did agree to start on Plavix. Mr. Denise is stable for discharge to home today. The patient was monitored on telemetry overnight and no arrhythmias were noted. Vital signs are as follows: Temperature 98.5, heart rate 96, respiratory rate 14, O2 sat 96%, and blood pressure 113/76. DISCHARGE PLAN: Mr. Denise will be discharged to home. Activity as tolerated. At this time, the patient is declining a Physical Therapy referral. I recommended if he continues to have issues with his gait, that he is seen by Physical Therapy. The patient should be continued on a consistent carbohydrate diet. As far as the possibility of a right cerebellar CVA or TIA, the patient has been started on Plavix. If the patient at some point decides that he is not interested in continuing on Plavix, he should be placed on full-dose aspirin , 325 mg daily. The patient should also be continued on his statin and his lipids followed and adjusted accordingly. The patient was taking omeprazole for GERD, but has been switched to Protonix due to starting on Plavix. The patient was found to have an acute kidney injury. I encouraged the patient to stay hydrated, limit NSAID use, and hold his lisinopril for now. I recommend considering holding the patient's metformin if his creatinine elevates to 1.5. The patient has been asked to get his basic metabolic panel rechecked on SaturdayJune 25, prior to followup appointment with his primary care doctor. The patient should be seen in followup with his primary care doctor, Dr. Dwayne Feliz. He has been asked to call tomorrow to set up an appointment to be seen next week. The patient has strongly been encouraged to stop smoking. The patient has been asked to return to the emergency room for any shortness of breath, chest pain, or changes in his neurological status such as slurred speech , facial droop, one-sided weakness, or worsening in his ability to ambulate. This is a summarized report of a complex medical history and hospital stay. For further details, please see the entire medical record. TIME SPENT: Time for this discharge was 50 minutes, and 25 minutes was spent face- to-face with the patient and discussing discharge plans and instructions. CONDITION ON DISCHARGE: Stable. Reviewed by LARWENCE DELEON 06/29/16 1427 CC: Dr. Feliz* [id number] #: [id number] MASOUD
== END 2016-06-21 19:15 | disposition home or self-care (01) | DRG 47 ==
LOC: ED 19:21 → MEDTELE 06-21 00:25
PROVIDERS: ADMIT Pediatrics; ATTEND Hospitalist
DX: G45.9 Transient cerebral ischemic attack, unspecified (principal); N17.9 Acute kidney failure, unspecified; F17.210 Nicotine dependence, cigarettes, uncomplicated; I10 Essential (primary) hypertension; E78.5 Hyperlipidemia, unspecified; E11.9 Type 2 diabetes mellitus without complications; J44.9 Chronic obstructive pulmonary disease, unspecified; K21.9 Gastro-esophageal reflux disease without esophagitis; F32.9 Major depressive disorder, single episode, unspecified; Z79.84 Long term (current) use of oral hypoglycemic drugs; Z79.82 Long term (current) use of aspirin; Z79.899 Other long term (current) drug therapy; Z88.1 Allergy status to other antibiotic agents; Z88.6 Allergy status to analgesic agent; Z88.2 Allergy status to sulfonamides; Z83.3 Family history of diabetes mellitus; Z82.49 Family history of ischemic heart disease and other diseases of the circulatory system
CPT/HCPCS: 36415; 70450; 70496; 70498; 70551; 71020; 80048; 80053; 80061; 80307; 81003; 83036; 83605; 83735; 85025; 93005; 93306; 99213; 99406; A9270-GY; G0463; J1644; J3475; Q9967

== ENCOUNTER 2016-07-25 12:54 | Emergency (ER) | payer OTHER ==
[2016-07-25 13:38] VITALS: BP 148/66
== END 2016-07-25 13:39 | disposition left against medical advice (07) ==
LOC: UCCORT 12:54
DX: R09.81 Nasal congestion (principal); J00 Acute nasopharyngitis [common cold]; Z53.21 Procedure and treatment not carried out due to patient leaving prior to being seen by health care provider
CPT/HCPCS: 99211; G0463

== ENCOUNTER 2016-08-11 19:05 | Emergency (ER) | payer OTHER ==
[2016-08-11] MEDS ORDERED: Albuterol 2.5 MG/3 ML NEB.SOL* (0.083%) INH ONE (19:54)
--- NOTE | 2016-08-11 20:00 | UC ---
Respiratory Complaint HPI - HPI Summary HPI Summary: patient is c/o of chest congestion, upper back pain with respirations. adbominal pain and distenstion, last Bm yesterday morning and it was very small and hard. Appetite is decreased. nausea with eating. stopped taking his insulin , becasue he thought it was making him sick. yesterdays BS was 306. - History of Current Complaint Chief Complaint: UCGeneralIllness Stated Complaint: CONGESTION Time Seen by Provider: 08/11/16 19:39 Hx Obtained From: Patient Onset/Duration: Gradual Onset, Lasting Days Timing: Constant Severity Initially: Moderate Severity Currently: Moderate Pain Scale Used: 0-10 Numeric Character: Cough: Productive Aggravating Factors: Exertion, Deep Breaths, Recumbent Position - Allergies/Home Medications Allergies/Adverse Reactions: Allergies Allergy/AdvReac Type Severity Reaction Status Date / Time Amoxicillin Allergy Severe respiratory Verified 08/11/16 19:21 /hives Sulfa Drugs Allergy Intermediate Hives Verified 08/11/16 19:21 Codeine AdvReac Intermediate Heartburn Verified 08/11/16 19:21 Home Medications: Home Medications Acetaminophen TAB* [Tylenol TAB*] 650 mg PO Q4H PRN 08/11/16 [History Confirmed 08/11/16] Albuterol HFA INHALER* [Ventolin HFA Inhaler*] 1 - 2 puff INH Q6H PRN 08/11/16 [ History Confirmed 08/11/16] PMH/Surg Hx/FS Hx/Imm Hx Previously Healthy: Yes Endocrine History Of: Reports: Diabetes Cardiovascular History Of: Reports: Cardiac Disorders - TIA 06/20/16, Hypertension Denies: Pacemaker/ICD Respiratory History Of: Reports: COPD, Asthma GI/ History Of: Denies: Renal Disease Psychological History Of: Reports: Depression - Surgical History Surgical History: Yes Surgery Procedure, Year, and Place: Umbilical Herniorrhaphy, 2002, [place] - Family History Known Family History: Positive: Hypertension - Social History Alcohol Use: Occasionally Substance Use Type: None Smoking Status (MU): Heavy Every Day Tobacco Smoker Type: Cigarettes Amount Used/How Often: 2 PPD Length of Time of Smoking/Using Tobacco: 46 Years Have You Smoked in the Last Year: Yes Household Exposure Type: Cigarettes - Immunization History Most Recent Influenza Vaccination: Not the Season Most Recent Tetanus Shot: 01/13/13 Most Recent Pneumonia Vaccination: pt vaccinated but does not know when Review of Systems Constitutional: Fatigue Skin: Negative Eyes: Negative Respiratory: Shortness Of Breath, Cough Gastrointestinal: Abdominal Pain - lower abdominal pain, Other - nausea and decreased appetite, constipation Genitourinary: Negative Motor: Negative Neurovascular: Negative Musculoskeletal: Negative Neurological: Negative Psychological: Negative All Other Systems Reviewed And Are Negative: Yes Physical Exam Triage Information Reviewed: Yes Appearance: Ill-Appearing, Pain Distress, Obese Vital Signs: Initial Vital Signs Temp 98.1 F 08/11/16 19:24 Pulse 96 08/11/16 19:24 Resp 22 08/11/16 19:24 BP 143/90 08/11/16 19:24 Pulse Ox 100 08/11/16 19:24 Vital Signs Reviewed: Yes Eye Exam: Normal Eyes: Positive: Conjunctiva Clear ENT Exam: Normal ENT: Positive: Normal ENT inspection, Hearing grossly normal, Pharyngeal erythema, TMs normal, Muffled/hoarse voice Dental Exam: Normal Neck exam: Normal Neck: Positive: Supple, Nontender, No Lymphadenopathy Respiratory: Positive: Decreased breath sounds, Wheezing, Inspiration, Other: - chest is tender, cough is present. patient is a smoker, dyspnea, mid back tenderness on respiration. Cardiovascular Exam: Normal Cardiovascular: Positive: RRR, No Murmur, Pulses Normal Abdominal Exam: Normal Abdomen Description: Positive: Other: - diffuse tenderness on palpation. distented, hyperactive BS. no organomegaly palpated. Bowel Sounds: Positive: Present Musculoskeletal Exam: Normal Musculoskeletal: Positive: Strength Intact, ROM Intact, Edema @ - bilateral lower extremity swelling Neurological Exam: Normal Neurological: Positive: Alert, Muscle Tone Normal, Other: - sensation intact on all extremities Psychological Exam: Normal Skin: Positive: Other - dry scally skin, UC Diagnostic Evaluation - Laboratory O2 Sat by Pulse Oximetry: 100 Respiratory Course/Dx - Course Course Of Treatment: hx obtained, exam performed, UA obtained glucose and blood noted, BS checked twice, both elevated results. Chest XRAY and KUB obtained, see reports. ekg UNCHNAGED FROM PREVIOUS ON 06.20.16. due to all complicating factors, advised he be seen in ER, patient transfered via Private car [place] [facility]. VS still elevated BP and Pulse - Differential Dx/Diagnosis Differential Diagnosis/HQI/PQRI: Asthma, Bronchitis, CHF, Exacerbation Of COPD, Influenza, Laryngitis, Pulmonary Embolism, Sinusitis, Other - [place], pneumonia hyperglycemia, constipation Provider Diagnoses: abdominal pain and distention. dyspnea. dry mouth. Hyperglycemia Discharge - Discharge Plan Condition: Stable Disposition: TRANS HIGHER LVL OF CARE FAC
--- NOTE | 2016-08-11 20:39 | RAD ---
INDICATION: Short of breath. Congestion. COMPARISON: June 20, 2016 TECHNIQUE: PA and lateral dual-energy views were obtained. FINDINGS: Bones/Soft Tissues: There are no acute bony findings. Cardiomediastinal: The cardiomediastinal silhouette is normal. Lungs: There are no infiltrates. Pleura: There are no pleural effusions. Other: None IMPRESSION: NO ACTIVE DISEASE.
--- NOTE | 2016-08-11 20:41 | RAD ---
INDICATION: Abdominal pain COMPARISON: None TECHNIQUE: A single view of the abdomen is submitted. FINDINGS: Bones: There are no acute bony findings. Soft tissues: The soft tissues appear normal. The psoas margins are sharp. Bowel gas pattern: Normal Calcifications: There are no abnormal calcifications. Other: None IMPRESSION: NO ACUTE DIAGNOSTIC FINDINGS.
[2016-08-11 21:22] VITALS: BP 153/90
== END 2016-08-11 21:05 | disposition left against medical advice (07) ==
LOC: UCCORT 19:05
DX: R10.84 Generalized abdominal pain (principal); R14.0 Abdominal distension (gaseous); R06.00 Dyspnea, unspecified; R68.2 Dry mouth, unspecified; E11.65 Type 2 diabetes mellitus with hyperglycemia; Z88.1 Allergy status to other antibiotic agents; Z88.5 Allergy status to narcotic agent; Z88.2 Allergy status to sulfonamides; F17.210 Nicotine dependence, cigarettes, uncomplicated
CPT/HCPCS: 71020; 74000; 93005; 99213; G0463

== ENCOUNTER 2016-08-11 21:38 | Emergency (ER) | payer OTHER ==
[2016-08-11] MEDS ORDERED: NS 0.9% 1000 ML* 1,000 ML IV ONE (22:36)
[2016-08-11 23:05] LABS: Hematocrit 47 % (42-52); Hemoglobin 15.9 g/dl (14.0-18.0); Mean Corpuscular HGB Conc 34 g/dl (31-36); Mean Corpuscular Hemoglobin 30 pg (27-31); Mean Corpuscular Volume 87 fL (80-94); Mean Platelet Volume 9 um3 (7.4-10.4); Red Cell Distribution Width 14 % (10.5-15); White Blood Count 17.4 10^3/ul (3.5-10.8)
[2016-08-11 23:17] LABS: Urine Bacteria Absent (Absent); Urine Bilirubin Negative (Negative); Urine Glucose 3+(>=500 mg/dL) (Negative); Urine Nitrite Negative (Negative)
[2016-08-11 23:19] LABS: Albumin 4.2 g/dL (3.2-5.2); BUN/Creatinine Ratio 18.7 (8-20); Calcium 9.6 mg/dL (8.6-10.3); EGFR African American 71.7 (>60); EGFR Non-African American 55.8 (>60); Globulin 3.3 g/dL (2-4); Total Bilirubin 0.3 mg/dL (0.2-1.0); Total Protein 7.5 g/dL (6.4-8.9)
[2016-08-11 23:20] LABS: Troponin I 0.01 ng/mL (<0.04)
[2016-08-11] MEDS ORDERED: Insulin REGULAR(*) 1 UNITS UNIT IV PUSH ONE (23:24)
[2016-08-11 23:27] LABS: Add Diff/Slide Review? Slide Review Added; Comments Flag Yes
[2016-08-11 23:47] LABS: Potassium 3.8 mmol/L (3.5-5.0)
[2016-08-12] MEDS ORDERED: Iodixanol* (CONTRAST) 320 MG/ML 100 ML SDV IV ONE (00:36)
[2016-08-12] MEDS ORDERED: Omeprazole CAP* 20 MG PO ONE (01:42)
[2016-08-12 02:05] VITALS: BP 136/78
--- NOTE | 2016-08-12 02:52 | ED ---
Jon Gallagher Karl, scribed for Milton Godinez on 08/11/16 at 2229 . HPI Diabetic - HPI Summary HPI Summary: 55 y/o M sent from [facility] presents w/ c/o 7/10 intermittent pain in his lower abd and back at night time for the past 5 days. Pt also reported "HIGH" blood glucose readings lately, diaphoresis, and chills. Pt denied nausea, vomiting, diarrhea, constipation, blood in his stool, and fever. Pt did report SOB and CP from a recent respiratory infection. Hx: IBS, IDDM II, HLD, HTN, GERD, TIA, renal failure. - History Of Current Complaint Chief Complaint: EDDiabeticProb Time Seen by Provider: 08/11/16 22:17 Hx Obtained From: Patient Onset/Duration: Gradual Onset, Lasting Days, Still Present Timing: Intermittent Episode Lasting Severity Initially: Moderate Severity Currently: Moderate Associated Signs & Symptoms: Abdominal Pain, Chills, Diaphoresis Related History: DM II - Allergies/Home Medications Allergies/Adverse Reactions: Allergies Allergy/AdvReac Type Severity Reaction Status Date / Time Amoxicillin Allergy Severe respiratory Verified 08/11/16 19:21 /hives Sulfa Drugs Allergy Intermediate Hives Verified 08/11/16 19:21 Codeine AdvReac Intermediate Heartburn Verified 08/11/16 19:21 PMH/Surg Hx/FS Hx/Imm Hx Previously Healthy: No Endocrine/Hematology History: Reports: Hx Diabetes Cardiovascular History: Reports: Hx Hypercholesterolemia, Hx Hypertension Denies: Hx Pacemaker/ICD Respiratory History: Reports: Hx Asthma, Hx Chronic Obstructive Pulmonary Disease (COPD) GI History: Reports: Hx Gastroesophageal Reflux Disease, Hx Irritable Bowel History: Reports: Other Problems/Disorders - kidney failure Denies: Hx Renal Disease Sensory History: Reports: Hx Contacts or Glasses Denies: Hx Hearing Aid Opthamlomology History: Reports: Hx Contacts or Glasses Psychiatric History: Reports: Hx Depression Denies: Hx Panic Disorder - Surgical History Surgery Procedure, Year, and Place: Umbilical Herniorrhaphy, 2002, [place] Infectious Disease History: No Infectious Disease History: Denies: Traveled Outside the [place] in Last 30 Days - Family History Known Family History: Positive: Hypertension, Diabetes - Social History Alcohol Use: Occasionally Substance Use Type: Reports: None Hx Tobacco Use: Yes Smoking Status (MU): Heavy Every Day Tobacco Smoker Type: Cigarettes Amount Used/How Often: 2 PPD Length of Time of Smoking/Using Tobacco: 46 Years Have You Smoked in the Last Year: Yes Review of Systems Positive: Chills, Skin Diaphoresis. Negative: Fever Eyes: Negative ENT: Negative Positive: Chest Pain Positive: Shortness Of Breath Positive: Abdominal Pain. Negative: Vomiting, Diarrhea, Nausea Genitourinary: Negative Positive: Arthralgia - lower back pain, Edema - pedal edema bilat Skin: Negative Neurological: Negative Psychological: Normal All Other Systems Reviewed And Are Negative: Yes Physical Exam Triage Information Reviewed: Yes Vital Signs On Initial Exam: Initial Vitals Temp Pulse Resp BP Pulse Ox 98.4 F 118 22 149/94 98 08/11/16 21:41 08/11/16 21:41 08/11/16 21:41 08/11/16 21:41 08/11/16 21:41 Vital Signs Reviewed: Yes Appearance: Positive: Well-Appearing, No Pain Distress Skin: Positive: Warm, Skin Color Reflects Adequate Perfusion, Dry Head/Face: Positive: Normal Head/Face Inspection Eyes: Positive: EOMI, NIKKI ENT: Positive: Normal ENT inspection Neck: Positive: Supple, Nontender Respiratory/Lung Sounds: Positive: Wheezes - bilaterally Cardiovascular: Positive: RRR, Pulses are Symmetrical in both Upper and Lower Extremities Abdomen Description: Positive: Other: - tenderness in the LLQ Bowel Sounds: Positive: Present Musculoskeletal: Positive: Strength/ROM Intact, Edema Left, Edema Right Neurological: Positive: Normal, Sensory/Motor Intact, Alert, Oriented to Person Place, Time Psychiatric: Positive: Affect/Mood Appropriate Diagnostics - Vital Signs Vital Signs Temp Pulse Resp BP Pulse Ox 08/11/16 21:41 98.4 F 118 22 149/94 98 - Laboratory Lab Results: Lab Results 08/11/16 08/11/16 08/11/16 Range/Units 22:55 22:55 23:06 WBC 17.4 H (3.5-10.8) 10^3/ul RBC 5.40 (4.0-5.4) 10^6/ul Hgb 15.9 (14.0-18.0) g/dl Hct 47 (42-52) % MCV 87 (80-94) fL MCH 30 (27-31) pg MCHC 34 (31-36) g/dl RDW 14 (10.5-15) % Plt Count 272 (150-450) 10^3/ul MPV 9 (7.4-10.4) um3 Neut % (Auto) 65.9 (38-83) % Lymph % (Auto) 25.7 (25-47) % [place] % (Auto) 6.3 (1-9) % Eos % (Auto) 1.1 (0-6) % Baso % (Auto) 1.0 (0-2) % Absolute Neuts (auto) 11.5 H (1.5-7.7) 10^3/ul Absolute Lymphs (auto) 4.5 (1.0-4.8) 10^3/ul Absolute Monos (auto) 1.1 H (0-0.8) 10^3/ul Absolute Eos (auto) 0.2 (0-0.6) 10^3/ul Absolute Basos (auto) 0.2 (0-0.2) 10^3/ul Absolute Nucleated RBC 0.01 10^3/ul Nucleated RBC % 0 Sodium 130 L (133-145) mmol/L Potassium 3.8 (3.5-5.0) mmol/L Chloride 94 L (101-111) mmol/L Carbon Dioxide 25 (22-32) mmol/L Anion Gap 11 (2-11) mmol/L BUN 25 H (6-24) mg/dL Creatinine 1.34 H (0.67-1.17) mg/dL Est GFR ( Amer) 71.7 (>60) Est GFR (Non-Af Amer) 55.8 (>60) BUN/Creatinine Ratio 18.7 (8-20) Glucose 361 H (70-100) mg/dL POC Glucose (mg/dL) (74-106) mg/dL Calcium 9.6 (8.6-10.3) mg/dL Total Bilirubin 0.30 (0.2-1.0) mg/dL AST 12 L (13-39) U/L ALT 23 (7-52) U/L Alkaline Phosphatase 86 (34-104) U/L Troponin I 0.01 (<0.04) ng/mL Total Protein 7.5 (6.4-8.9) g/dL Albumin 4.2 (3.2-5.2) g/dL Globulin 3.3 (2-4) g/dL Albumin/Globulin Ratio 1.3 (1-3) Lipase 61 (11.0-82.0) U/L Urine Color Yellow Urine Appearance Clear Urine pH 5.0 (5-9) Ur Specific [place] 1.014 (1.010-1.030) Urine Protein Negative (Negative) Urine Ketones Negative (Negative) Urine Blood 2+ H (Negative) Urine Nitrate Negative (Negative) Urine Bilirubin Negative (Negative) Urine Urobilinogen Negative (Negative) Ur Leukocyte Esterase Negative (Negative) Urine WBC (Auto) Trace(0-5/hpf) (Absent) Urine RBC (Auto) 1+(3-5/hpf) H (Absent) Ur Squamous Epith Cells Present H (Absent) Urine Bacteria Absent (Absent) Urine Glucose 3+(>=500 mg/dl) H (Negative) 08/12/16 Range/Units 02:04 WBC (3.5-10.8) 10^3/ul RBC (4.0-5.4) 10^6/ul Hgb (14.0-18.0) g/dl Hct (42-52) % MCV (80-94) fL MCH (27-31) pg MCHC (31-36) g/dl RDW (10.5-15) % Plt Count (150-450) 10^3/ul MPV (7.4-10.4) um3 Neut % (Auto) (38-83) % Lymph % (Auto) (25-47) % [place] % (Auto) (1-9) % Eos % (Auto) (0-6) % Baso % (Auto) (0-2) % Absolute Neuts (auto) (1.5-7.7) 10^3/ul Absolute Lymphs (auto) (1.0-4.8) 10^3/ul Absolute Monos (auto) (0-0.8) 10^3/ul Absolute Eos (auto) (0-0.6) 10^3/ul Absolute Basos (auto) (0-0.2) 10^3/ul Absolute Nucleated RBC 10^3/ul Nucleated RBC % Sodium (133-145) mmol/L Potassium (3.5-5.0) mmol/L Chloride (101-111) mmol/L Carbon Dioxide (22-32) mmol/L Anion Gap (2-11) mmol/L BUN (6-24) mg/dL Creatinine (0.67-1.17) mg/dL Est GFR ( Amer) (>60) Est GFR (Non-Af Amer) (>60) BUN/Creatinine Ratio (8-20) Glucose (70-100) mg/dL POC Glucose (mg/dL) 287 H (74-106) mg/dL Calcium (8.6-10.3) mg/dL Total Bilirubin (0.2-1.0) mg/dL AST (13-39) U/L ALT (7-52) U/L Alkaline Phosphatase (34-104) U/L Troponin I (<0.04) ng/mL Total Protein (6.4-8.9) g/dL Albumin (3.2-5.2) g/dL Globulin (2-4) g/dL Albumin/Globulin Ratio (1-3) Lipase (11.0-82.0) U/L Urine Color Urine Appearance Urine pH (5-9) Ur Specific [place] (1.010-1.030) Urine Protein (Negative) Urine Ketones (Negative) Urine Blood (Negative) Urine Nitrate (Negative) Urine Bilirubin (Negative) Urine Urobilinogen (Negative) Ur Leukocyte Esterase (Negative) Urine WBC (Auto) (Absent) Urine RBC (Auto) (Absent) Ur Squamous Epith Cells (Absent) Urine Bacteria (Absent) Urine Glucose (Negative) Result Diagrams: 08/11/16 22:55 08/11/16 22:55 Lab Statement: Any lab studies that have been ordered have been reviewed, and results considered in the medical decision making process. - CT CT Abd/Pelvis w/ [CT] CT Interpretation: No Acute Changes CT Interpretation Completed By: Radiologist - IMPRESSION: No localizing signs for acute pathology. Diabetic Course/Dx - Diagnoses Provider Diagnoses: Lower abdominal pain, unspecified Discharge - Discharge Plan Condition: Stable Disposition: HOME Prescriptions: Omeprazole CAP* [Prilosec CAP* 20 MG] 40 mg PO DAILY #30 cap. Patient Education Materials: Acute Abdominal Pain (ED) Referrals: CARRILLO Brush [Primary Care Provider] - Additional Instructions: Please follow up with your primary care provider within the next 3 days. The documentation as recorded by the Jon ferraro Karl accurately reflects the service I personally performed and the decisions made by me, Milton Godinez.
--- NOTE | 2016-08-12 06:42 | RAD ---
INDICATION: Diverticulitis COMPARISON: None TECHNIQUE: Axial source images were obtained from the hemidiaphragms to the symphysis pubis following administration of oral and intravenous contrast. 141 mL Visipaque 320 was utilized. Coronal and sagittal reconstructed images were acquired. Lung bases: The lung bases are clear. Liver: The liver is normal in size. There are no masses. There is no ductal dilatation. Gallbladder: There are no calcified gallstones. There is no evidence of wall thickening or pericholecystic fluid. Spleen: The spleen is normal in size. There are no masses. Pancreas: There is no focal pancreatic mass or ductal dilatation. Adrenal glands: There is no evidence of adrenal mass. Kidneys: The kidneys are normal in size and position. There are prompt nephrograms and there is prompt excretion bilaterally. There are several right renal cysts with a dominant 3 cm midpole renal cyst. There is no evidence of nephrolithiasis. Adenopathy: There is no evidence of adenopathy by size criteria. Fluid collections: There are no free or localized fluid collections. Vessels:There are no significant atherosclerotic changes involving the aorta. Incidental note is made of a retroaortic left renal vein There is no focal aneurysm. The iliac vessels are normal in caliber. The IVC appears normal. GI tract: There are no acute CT bowel findings. There is no obstruction. The stomach and small bowel appear normal. The lower GI tract is normal. The cecum, ileocecal valve, and terminal ileum appear normal. The appendix is visualized and appear normal. Pelvic organs: The prostate and seminal vesicles appear normal Bladder: There are no bladder masses. Abdominal and pelvic soft tissues: The extraperitoneal abdominal and pelvic soft tissues appear normal.. Osseous structures: There are no acute osseous findings. Other: None IMPRESSION: NO ACUTE CT FINDINGS. NO MASS OR INFLAMMATORY CHANGE
== END 2016-08-12 02:05 | disposition home or self-care (01) ==
LOC: SUPCPDRO 21:38 → ED 21:38
DX: R10.30 Lower abdominal pain, unspecified (principal); I12.9 Hypertensive chronic kidney disease with stage 1 through stage 4 chronic kidney disease, or unspecified chronic kidney disease; E11.22 Type 2 diabetes mellitus with diabetic chronic kidney disease; N18.9 Chronic kidney disease, unspecified; F17.210 Nicotine dependence, cigarettes, uncomplicated; K58.9 Irritable bowel syndrome, unspecified; E78.5 Hyperlipidemia, unspecified; Z86.73 Personal history of transient ischemic attack (TIA), and cerebral infarction without residual deficits; J44.9 Chronic obstructive pulmonary disease, unspecified; J45.909 Unspecified asthma, uncomplicated; Z79.4 Long term (current) use of insulin
CPT/HCPCS: 36415; 74177; 80053; 81003; 81015; 83690; 84484; 85025; 96360; 99283; Q9967

== ENCOUNTER 2016-09-23 12:06 | Emergency (ER) | payer OTHER ==
[2016-09-23 14:09] VITALS: BP 136/72
--- NOTE | 2016-09-23 14:42 | UC ---
Throat Pain/Nasal Juan HPI - HPI Summary HPI Summary: patient has been takeing nystatin for oral and esophageal thrush. he refused to take all the nystatin because he couldnt take the tast. was given 2 doses fo diflucan. but still complaining of dysphagia and tickled throat. - History of Current Complaint Chief Complaint: UCGeneralIllness Stated Complaint: THRUSH,BILATERAL EYE Time Seen by Provider: 09/23/16 14:16 Hx Obtained From: Patient Onset/Duration: Sudden Onset, Lasting Weeks Severity: Moderate Associated Signs & Symptoms: Positive: Dysphagia, Wheezing, Hoarseness - Epiglottits Risk Factors Epiglottis Risk Factors: Negative - Allergies/Home Medications Allergies/Adverse Reactions: Allergies Allergy/AdvReac Type Severity Reaction Status Date / Time Amoxicillin Allergy Severe respiratory Verified 09/23/16 14:09 /hives Sulfa Drugs Allergy Intermediate Hives Verified 09/23/16 14:09 Codeine AdvReac Intermediate Heartburn Verified 09/23/16 14:09 Home Medications: Home Medications Canagliflozin (NF) [Invokana (NF)] 300 mg PO 09/23/16 [History] PMH/Surg Hx/FS Hx/Imm Hx Previously Healthy: Yes Endocrine History Of: Reports: Diabetes Cardiovascular History Of: Reports: Cardiac Disorders - TIA 06/20/16, Hypertension Denies: Pacemaker/ICD Respiratory History Of: Reports: COPD, Asthma GI/ History Of: Denies: Renal Disease Psychological History Of: Reports: Depression - Surgical History Surgical History: Yes Surgery Procedure, Year, and Place: Umbilical Herniorrhaphy, 2002, [place] - Family History Known Family History: Positive: Hypertension, Diabetes - Social History Alcohol Use: Occasionally Substance Use Type: None Smoking Status (MU): Heavy Every Day Tobacco Smoker Type: Cigarettes Amount Used/How Often: 2 PPD Length of Time of Smoking/Using Tobacco: 46 Years Have You Smoked in the Last Year: Yes Household Exposure Type: Cigarettes - Immunization History Most Recent Influenza Vaccination: Not the 2016/2016 Season Most Recent Tetanus Shot: 01/13/13 Most Recent Pneumonia Vaccination: pt vaccinated but does not know when Review of Systems Constitutional: Negative Skin: Rash Eyes: Negative ENT: Sore Throat Respiratory: Cough Cardiovascular: Negative Gastrointestinal: Negative Genitourinary: Negative Motor: Negative Neurovascular: Negative Musculoskeletal: Negative Neurological: Negative Psychological: Negative All Other Systems Reviewed And Are Negative: Yes Physical Exam Triage Information Reviewed: Yes Appearance: Well-Nourished, Ill-Appearing, Pain Distress Vital Signs: Initial Vital Signs Temp 97.1 F 09/23/16 14:01 Pulse 93 09/23/16 14:01 Resp 18 09/23/16 14:01 BP 136/72 09/23/16 14:01 Pulse Ox 99 09/23/16 14:01 Vital Signs Reviewed: Yes Eye Exam: Normal Eyes: Positive: Conjunctiva Clear ENT Exam: Normal ENT: Positive: Normal ENT inspection, Hearing grossly normal, Pharyngeal erythema, TM red, Tonsillar swelling, Tonsillar exudate Dental Exam: Normal Neck exam: Normal Neck: Positive: Supple, Nontender, No Lymphadenopathy Respiratory Exam: Normal Respiratory: Positive: Chest non-tender, Lungs clear, Normal breath sounds Cardiovascular Exam: Normal Cardiovascular: Positive: RRR, No Murmur, Pulses Normal Abdominal Exam: Normal Abdomen Description: Positive: Nontender, No Organomegaly, Soft Bowel Sounds: Positive: Present Musculoskeletal Exam: Normal Musculoskeletal: Positive: Strength Intact, ROM Intact, No Edema Neurological Exam: Normal Neurological: Positive: Alert, Muscle Tone Normal Psychological Exam: Normal Skin Exam: Normal Throat Pain/Nasal Course/Dx - Course Course Of Treatment: hx obtained, exam performed, meds reviewed, rapid strep obtained, educated patient on causes and treatment of thrush, adverse rxn with plavix and diflucan, patient states he is going off the plavix and starting ASA daily per his PCP. is willing to do the diflucan and will f/u with his PCP tomorrow. - Differential Dx/Diagnosis Differential Diagnosis/HQI/PQRI: Influenza, Laryngitis, Otitis Media, Pharyngitis, Sinusitis, URI, Other - du Provider Diagnoses: oral du Discharge - Discharge Plan Condition: Stable Disposition: HOME Prescriptions: Fluconazole 100 MG TAB* [Diflucan 100 MG TAB*] 100 mg PO DAILY #6 tab Patient Education Materials: Oral Candidiasis (ED) Additional Instructions: 1. take the medication as prescribed. 2. As we taked about the difulcan will diminishe the effectivness of the plavix , please notify your Primary physician with any increased symptoms of chestpain or headache. 3. your strep test was negative.
== END 2016-09-23 14:53 | disposition home or self-care (01) ==
LOC: UCCORT 12:06
DX: B37.0 Candidal stomatitis (principal); I10 Essential (primary) hypertension; Z86.73 Personal history of transient ischemic attack (TIA), and cerebral infarction without residual deficits; Z88.1 Allergy status to other antibiotic agents; Z88.5 Allergy status to narcotic agent; Z88.2 Allergy status to sulfonamides; F17.210 Nicotine dependence, cigarettes, uncomplicated
CPT/HCPCS: 87651; 99211; G0463

== ENCOUNTER 2016-09-27 18:00 | Emergency (ER) | payer OTHER ==
[2016-09-27 18:04] VITALS: BP 147/74
== END 2016-09-27 20:30 | disposition left against medical advice (07) ==
LOC: ED 18:00
DX: B37.9 Candidiasis, unspecified (principal); Z53.21 Procedure and treatment not carried out due to patient leaving prior to being seen by health care provider

== ENCOUNTER 2016-09-27 20:17 | Emergency (ER) | payer OTHER ==
[2016-09-27 20:44] VITALS: BP 108/81
--- NOTE | 2016-09-27 20:46 | UC ---
Throat Pain/Nasal Juan HPI - HPI Summary HPI Summary: ST, hoarseness for several weeks. Was dx with thrush by PCP and placed on nystatin. He threw out his powder inhaler, gave up on the nystatin because of the taste, then was prescribed 2 doses of diflucan 150gm to take 4 days apart. When he didn't improve, he went to [facility] and was rx diflucan 100mg PO x 6 days. Now returns here again without improvement. Reports lots of sweating. - History of Current Complaint Stated Complaint: THRUSH Time Seen by Provider: 09/27/16 20:30 Hx Obtained From: Patient Onset/Duration: Gradual Onset, Lasting Weeks Severity: Moderate Cough: Nonproductive Associated Signs & Symptoms: Positive: Wheezing - Allergies/Home Medications Allergies/Adverse Reactions: Allergies Allergy/AdvReac Type Severity Reaction Status Date / Time Amoxicillin Allergy Severe respiratory Verified 09/27/16 20:30 /hives Sulfa Drugs Allergy Intermediate Hives Verified 09/27/16 20:30 Codeine AdvReac Intermediate Heartburn Verified 09/27/16 20:30 PMH/Surg Hx/FS Hx/Imm Hx Endocrine History Of: Reports: Diabetes Cardiovascular History Of: Reports: Cardiac Disorders - TIA 06/20/16, Hypertension Denies: Pacemaker/ICD Respiratory History Of: Reports: COPD, Asthma GI/ History Of: Denies: Renal Disease Psychological History Of: Reports: Depression - Surgical History Surgical History: Yes Surgery Procedure, Year, and Place: Umbilical Herniorrhaphy, 2002, [place] - Family History Known Family History: Positive: Hypertension, Diabetes - Social History Occupation: Unemployed Alcohol Use: Occasionally Substance Use Type: None Smoking Status (MU): Heavy Every Day Tobacco Smoker Type: Cigarettes Amount Used/How Often: 2 PPD Length of Time of Smoking/Using Tobacco: 46 Years Have You Smoked in the Last Year: Yes Household Exposure Type: Cigarettes Cessation Counseling: Patient Advised to Stop - Immunization History Most Recent Influenza Vaccination: Not the 2016/2017 Season Most Recent Tetanus Shot: 01/13/13 Most Recent Pneumonia Vaccination: pt vaccinated but does not know when Review of Systems Constitutional: Negative Skin: Negative Eyes: Negative ENT: Sore Throat, Other - hoarseness Respiratory: Negative Cardiovascular: Negative Gastrointestinal: Negative Genitourinary: Negative Motor: Negative Neurovascular: Negative Musculoskeletal: Negative Neurological: Negative Psychological: Negative All Other Systems Reviewed And Are Negative: Yes Physical Exam Triage Information Reviewed: Yes Appearance: Well-Appearing, Well-Nourished Vital Signs Reviewed: Yes Eye Exam: Normal Eyes: Positive: Conjunctiva Clear ENT: Positive: Hearing grossly normal, Pharyngeal erythema - diffuse redness, Muffled/hoarse voice - quite hoarse. Negative: Tonsillar swelling, Tonsillar exudate Dental Exam: Normal Neck exam: Normal Neck: Positive: Supple, Nontender, No Lymphadenopathy Respiratory: Positive: Accessory muscle use - mild, Wheezing Cardiovascular Exam: Normal Cardiovascular: Positive: RRR, No Murmur Musculoskeletal Exam: Normal Neurological Exam: Normal Neurological: Positive: Alert Skin Exam: Normal Throat Pain/Nasal Course/Dx - Course Course Of Treatment: Due to the lack of response to both nystatin and prolonged diflucan, I am concerned that thrush may not be the cause. Given the length of symptoms and the patient's significant smoking history, I will treat for thrush concurrent with a referral to ENT. - Differential Dx/Diagnosis Provider Diagnoses: persistent hoarseness Discharge - Discharge Plan Condition: Stable Disposition: HOME Prescriptions: Clotrimazole KHARI* [Mycelex Khari*] 10 mg PO SEE INSTRUCTIONS #70 khari Patient Education Materials: Laryngitis (ED) Referrals: Negro Knight MD [Medical Doctor] - 1 Week Additional Instructions: As we discussed, I am concerned that your lack or response to treatment means you may not have thrush after all. Since you have had hoarseness for weeks without improvement, I strongly recommend you follow up with an ear, nose, and throat specialist.
== END 2016-09-27 20:50 | disposition home or self-care (01) ==
LOC: UCEAST 20:17
DX: R49.0 Dysphonia (principal); R06.2 Wheezing; E11.9 Type 2 diabetes mellitus without complications; Z86.73 Personal history of transient ischemic attack (TIA), and cerebral infarction without residual deficits; I10 Essential (primary) hypertension; J44.9 Chronic obstructive pulmonary disease, unspecified; F32.9 Major depressive disorder, single episode, unspecified; Z88.1 Allergy status to other antibiotic agents; Z88.5 Allergy status to narcotic agent; Z88.2 Allergy status to sulfonamides; F17.210 Nicotine dependence, cigarettes, uncomplicated
CPT/HCPCS: 99212; G0463